=== PATIENT | male | born 1970 | race Caucasian/White ===

== ENCOUNTER 2016-09-21 19:57 | Emergency (ER) | payer OTHER ==
--- NOTE | ~2016-09-21 | ER ---
PATIENT'S NAME: YOVANY CRUZ [facility] AGE: 45 Y [address] ROOM: [place] [address] LOCATION: [facility] ADMIT DATE: 09/21/2016 ER/Outpatient Report DISCHARGE DATE: 09/21/2016 FAMILY PHYSICIAN: Martín Fishman MD ATTENDING PHYSICIAN: Francie Rhodes HISTORY OF PRESENT ILLNESS: This is a 45-year-old male who presents today with chief complaint of right- sided facial numbness, this started about 2 hours ago. The patient says that he had some difficulty talking, some right-sided facial droop, some paresthesias on his tongue on the right-side, paresthesia on the right side of his face, the whole right side of his face including his forehead, and he was unable to shut his eye completely. He apparently lives next to home which has doctors, so he called his neighbor who is an eye doctor and he came over to give him eyedrops, then looked at him and told him he should probably get seen, probably thought it was Verde's palsy though. The patient then called Dr. Hodges who lives next to him, who told him that he should probably come in. He also called his primary care doctor, Dr. Fishman, sent him a few pictures. Dr. Fishman thought it was Verde's palsy and called him some steroids and probably antivirals and told him to follow up tomorrow in his office, but the patient called his other doctor friends who told him he should probably just go to the ER and get it checked out. It is only located to his face. He denies any weakness on one side of the body or anything else. He reports that he felt dizzy but this was after he was told that he had a facial droop, so he was more concerned than anything else. He denies being dizzy at this time. PAST MEDICAL HISTORY: None. PAST SURGICAL HISTORY: Ankle surgery. SOCIAL HISTORY: He does not smoke or use any drugs. Occasional alcohol. MEDICATIONS: None. ALLERGIES: NONE. REVIEW OF SYSTEMS: Reviewed by me and negative with the exception of those discussed in HPI. PATIENT'S NAME: YOVANY CRUZ [facility] AGE: 45 Y [address] ROOM: [place] [address] LOCATION: [facility] ADMIT DATE: 09/21/2016 ER/Outpatient Report DISCHARGE DATE: 09/21/2016 FAMILY PHYSICIAN: Martín Fishman MD ATTENDING PHYSICIAN: Francie Rhodes PHYSICAL EXAMINATION: VITAL SIGNS: The patient's height is 6 feet 2 inches, he weighs 102 kilograms, blood pressure is 163/101, heart rate 97, respiratory rate 16, saturating 98% on room air, temperature is 97.6. GENERAL: The patient is well appearing. He is not in any acute distress. He is nontoxic. HEART: Regular rate and rhythm. It is not irregular. LUNGS: Lung sounds are clear. ABDOMEN: Soft, nontender. SKIN: Warm, dry, and intact. NEUROLOGIC: GCS is 15. Alert and oriented x4. He does have some nasolabial flattening on the right side, he is unable to completely shut that right eye as well, and when he lifts his eyebrows bilaterally the right eyebrow does not go as high as the left one, and there are also diminished wrinkles on the right side of his face, so it is the whole side of his face, it is not forehead sparing. He has no pronator drift. His strength in bilateral upper extremities is 5/5. Grasp strength in bilateral upper extremities is within normal limits and equal. Bilateral lower extremity strength is 5/5. Intact sensation to bilateral upper and lower extremities. Cranial nerves 2 through 12 are intact. Also on his eye exam, the visual acuity is intact, but he has some redness in the right eye, and as mentioned above, he is unable to close it completely. EMERGENCY DEPARTMENT COURSE: Discussed with this patient. 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 Dr. Fishman had already called him what sounds like steroids and antivirals. I did tell him that he should tape his eye shut as there is possibility for corneal abrasions. I do not think this is stroke. I gave him things to look out for though, which is like limb weakness, etc., but given that it is the whole right side of the face and it is not forehead sparing, this is Verde's palsy. He will follow up with Dr. Fishman tomorrow. IMPRESSION: Verde's palsy. MD NANCI ANN/ezequiel /[id number] d: 09/22/16 0427 t: 09/23/16 1816, OUTPATIENT REPORT
== END 2016-09-21 20:25 | disposition disaster alternative care site (69) ==
LOC: GMED 19:57
DX: G51.0 Bell's palsy (principal); Z98.890 Other specified postprocedural states